=== PATIENT | female | born 1985 | race African-American/Black ===

== ENCOUNTER 2022-08-25 10:25 | Emergency (ER) | payer MEDICAID ==
[~2022-08-25] VITALS: Ht 170.2 cm; Wt 77.0 kg
[2022-08-25 13:41] VITALS: BP 137/83
== END 2022-08-25 13:44 | disposition left against medical advice (07) ==
LOC: ER 10:25
DX: R07.89 Other chest pain (principal); Z98.890 Other specified postprocedural states
CPT/HCPCS: 71045; 81025; 93005; 99283